=== PATIENT | male | born 1965 | race Caucasian/White ===

== ENCOUNTER 2016-05-24 14:55 | Emergency (ER) | payer MEDICAID | END 2016-05-24 18:02 | disposition home or self-care (01) | LOC: D.ER 14:55 | DX: R10.9 Unspecified abdominal pain (principal); S39.011A Strain of muscle, fascia and tendon of abdomen, initial encounter; X50.0XXA Overexertion from strenuous movement or load, initial encounter; Y93.89 Activity, other specified; Y92.89 Other specified places as the place of occurrence of the external cause; F41.9 Anxiety disorder, unspecified; F31.9 Bipolar disorder, unspecified; F10.10 Alcohol abuse, uncomplicated; F17.200 Nicotine dependence, unspecified, uncomplicated ==

== ENCOUNTER → 2017-06-03 11:47 | Outpatient (CLI) | payer MEDICAID ==
[2017-06-03 12:26] LABS: BASOPHILS 0.4 % (0-2); EOSINOPHILS 0.3 % (0-7); HEMATOCRIT 41.4 % (42.0-54.0); HEMOGLOBIN 14.1 g/dL (13.5-17.5); IMMATURE GRANULOCYTES 0.3 % (0-5); LYMPHOCYTES 14.5 % (15-50); MCH 34.7 pg (26.0-34.0); MCHC 34.1 g/dL (31.0-37.0); MEAN PLATELET VOLUME 8.6 fL (7.4-10.4); NEUTROPHILS 74.5 % (40-80); RBC 4.06 10x6/uL (4.20-6.10); RDW 16.4 % (11.5-14.5); WBC 11.5 10x3/uL (4.8-10.8)
[2017-06-03 12:27] LABS: PLATELET COUNT 171 10x3/uL (130-400)
[2017-06-03 12:53] LABS: ALBUMIN 3.6 g/dL (3.4-5.0); ALKALINE PHOSPHATASE 127 U/L (46-116); ALT (SGPT) 90 U/L (10-68); CALC OSMOLALITY 269 mosm/kg (275-300); CALCIUM 8.3 mg/dL (8.5-10.1); CARBON DIOXIDE 29.2 mmol/L (21.0-32.0); CHLORIDE - SERUM 97 mmol/L (98-107); CREATININE - SERUM 0.9 mg/dL (0.6-1.3); GLUCOSE 112 mg/dL (74-106); PROTEIN - SERUM 7.4 g/dL (6.4-8.2); SODIUM 135 mmol/L (136-145); UREA NITROGEN 11 mg/dL (7-18); eGFR NON AFRICAN AMERICAN > 90 mL/min (90-120)
[2017-06-03 13:47] LABS: THYROID STIMULATING HORMONE 211.23 uIU/mL (0.36-3.74)
== END | disposition home or self-care (01) ==
LOC: D.RAD 11:47
PROVIDERS: Family Medicine
DX: R10.9 Unspecified abdominal pain (principal); R05 Cough; G62.9 Polyneuropathy, unspecified; F42.9 Obsessive-compulsive disorder, unspecified; F31.9 Bipolar disorder, unspecified; G89.29 Other chronic pain; F10.10 Alcohol abuse, uncomplicated

== ENCOUNTER → 2017-06-12 09:31 | Outpatient (CLI) | payer MEDICAID ==
[2017-06-12 10:42] LABS: THYROID STIMULATING HORMONE 167.75 uIU/mL (0.36-3.74)
[2017-06-13 07:36] LABS: T3 - FREE 1.8 pg/mL (2.0-4.4)
[2017-06-13 10:53] LABS: HEPATITIS C ANTIBODY <0.1 (0.0-0.9)
== END | disposition home or self-care (01) ==
LOC: D.LAB 09:31 → D.US 10:30
PROVIDERS: Family Medicine
DX: R10.11 Right upper quadrant pain (principal); R79.89 Other specified abnormal findings of blood chemistry; E03.9 Hypothyroidism, unspecified

== ENCOUNTER → 2017-07-29 12:53 | Outpatient (CLI) | payer MEDICAID ==
[2017-07-29 13:24] LABS: APTT 28.7 SECONDS (22.8-39.4); INR 0.96 (0.85-1.17); PROTIME 12.4 SECONDS (11.6-15.0)
[2017-07-29 14:02] LABS: ALBUMIN 3.7 g/dL (3.4-5.0); BILIRUBIN - DIRECT 0.28 mg/dL (0.00-0.30); BILIRUBIN - INDIRECT 0.52 mg/dL (0.00-1.00); BILIRUBIN - TOTAL 0.8 mg/dL (0.2-1.3); PROTEIN - SERUM 7.5 g/dL (6.4-8.2); T4 THYROXIN - FREE 0.34 ng/dL (0.76-1.46); T4 THYROXINE 2.3 ug/dL (4.7-13.3)
[2017-07-29 14:03] LABS: THYROID STIMULATING HORMONE 155.57 uIU/mL (0.36-3.74)
== END | disposition home or self-care (01) ==
LOC: D.LAB 12:53
PROVIDERS: Family Medicine
DX: E03.9 Hypothyroidism, unspecified (principal); K76.0 Fatty (change of) liver, not elsewhere classified; F10.129 Alcohol abuse with intoxication, unspecified

== ENCOUNTER → 2017-10-28 11:19 | Outpatient (CLI) | payer MEDICAID ==
[2017-10-28 11:43] LABS: BASOPHILS 2.2 % (0-2); HEMATOCRIT 35.5 % (42.0-54.0); HEMOGLOBIN 12.5 g/dL (13.5-17.5); IMMATURE GRANULOCYTES 0.2 % (0-5); LYMPHOCYTES 29.3 % (15-50); MCHC 35.2 g/dL (31.0-37.0); MCV 99.4 fL (80.0-100.0); MEAN PLATELET VOLUME 8.9 fL (7.4-10.4); MONOCYTES 10.8 % (2-11); NEUTROPHILS 56.5 % (40-80); PLATELET COUNT 178 10x3/uL (130-400); RBC 3.57 10x6/uL (4.20-6.10); RDW 15.2 % (11.5-14.5); WBC 5.8 10x3/uL (4.8-10.8)
[2017-10-28 12:21] LABS: ALBUMIN 3.4 g/dL (3.4-5.0); ALKALINE PHOSPHATASE 122 U/L (46-116); ALT (SGPT) 68 U/L (10-68); BILIRUBIN - TOTAL 0.66 mg/dL (0.2-1.3); CALC OSMOLALITY 268 mosm/kg (275-300); CARBON DIOXIDE 26.5 mmol/L (21.0-32.0); CHLORIDE - SERUM 101 mmol/L (98-107); CREATININE - SERUM 0.8 mg/dL (0.6-1.3); GLUCOSE 81 mg/dL (74-106); POTASSIUM - SERUM 3.6 mmol/L (3.5-5.1); PROTEIN - SERUM 7.1 g/dL (6.4-8.2); SODIUM 136 mmol/L (136-145); T4 THYROXIN - FREE 0.23 ng/dL (0.76-1.46); UREA NITROGEN 8 mg/dL (7-18); eGFR NON AFRICAN AMERICAN > 90 mL/min (90-120)
[2017-10-28 13:06] LABS: THYROID STIMULATING HORMONE 241.42 uIU/mL (0.36-3.74)
== END | disposition home or self-care (01) ==
LOC: D.LAB 11:19 → D.US 13:30
PROVIDERS: Family Medicine
DX: E03.9 Hypothyroidism, unspecified (principal); R22.9 Localized swelling, mass and lump, unspecified

== ENCOUNTER 2017-11-27 11:53 | Emergency (ER) | payer OTHER ==
[~2017-11-27] VITALS: Ht 175.3 cm; Wt 66.8 kg
[2017-11-27 12:00] VITALS: Ht 175.3 cm; Wt 66.8 kg
[2017-11-27] MEDS ORDERED: NEURONTIN 300300 MG PO (12:02)
[2017-11-27] MEDS ORDERED: SEROQUEL300 MG PO (12:02)
[2017-11-27] MEDS ORDERED: OMEPRAZOLE20 M1 PO (12:02)
[2017-11-27] MEDS ORDERED: UNITHROID125 MCG PO (12:03)
[2017-11-27 12:30] LABS: BASOPHILS 1.3 % (0-2); EOSINOPHILS 0.6 % (0-7); HEMATOCRIT 33.3 % (42.0-54.0); HEMOGLOBIN 11.8 g/dL (13.5-17.5); IMMATURE GRANULOCYTES 0.2 % (0-5); LYMPHOCYTES 25.4 % (15-50); MCH 36.1 pg (26.0-34.0); MCHC 35.4 g/dL (31.0-37.0); MCV 101.8 fL (80.0-100.0); MEAN PLATELET VOLUME 8.7 fL (7.4-10.4); MONOCYTES 7.4 % (2-11); NEUTROPHILS 65.1 % (40-80); RBC 3.27 10x6/uL (4.20-6.10); RDW 15.8 % (11.5-14.5); WBC 6.2 10x3/uL (4.8-10.8)
[2017-11-27 12:36] LABS: PLATELET COUNT 136 10x3/uL (130-400)
[2017-11-27 12:50] LABS: ALBUMIN 3.3 g/dL (3.4-5.0); ALKALINE PHOSPHATASE 146 U/L (46-116); ALT (SGPT) 83 U/L (10-68); CALC OSMOLALITY 271 mosm/kg (275-300); CALCIUM 8.1 mg/dL (8.5-10.1); CHLORIDE - SERUM 99 mmol/L (98-107); CREATININE - SERUM 0.7 mg/dL (0.6-1.3); POTASSIUM - SERUM 3.5 mmol/L (3.5-5.1); PROTEIN - SERUM 6.7 g/dL (6.4-8.2); SODIUM 138 mmol/L (136-145); UREA NITROGEN 8 mg/dL (7-18); eGFR NON AFRICAN AMERICAN > 90 mL/min (90-120)
[2017-11-27 12:51] LABS: GLUCOSE 61 mg/dL (74-106)
[2017-11-27 12:57] LABS: AMYLASE - SERUM 74 U/L (25-115); LIPASE 184 U/L (73-393)
[2017-11-27 13:04] LABS: UDS - AMPHET NEGATIVE QUAL (NEGATIVE); UDS - BARB NEGATIVE QUAL (NEGATIVE); UDS - BENZO NEGATIVE QUAL (NEGATIVE); UDS - COCAINE NEGATIVE QUAL (NEGATIVE); UDS - OPIATE NEGATIVE QUAL (NEGATIVE); UDS - PCP NEGATIVE QUAL (NEGATIVE); UDS - THC POSITIVE QUAL (NEGATIVE)
[2017-11-27 13:20] LABS: THYROID STIMULATING HORMONE 200.88 uIU/mL (0.36-3.74)
[2017-11-27 13:35] LABS: APPEARANCE CLEAR (CLEAR); COLOR DK YELLOW (YELLOW)
[2017-11-27 13:36] LABS: BACTERIA FEW /hpf (NONE SEEN); BILIRUBIN NEGATIVE (NEGATIVE); EPITHELIAL CELLS 0-5 /hpf (0-5); GLUCOSE NEGATIVE (NEGATIVE); HYALINE CAST OCC /lpf (NONE SEEN); KETONE SMALL mg/dL (NEGATIVE); MUCUS >1+ /lpf (NONE SEEN); NITRITE NEGATIVE (NEGATIVE); PROTEIN TRACE mg/dL (NEGATIVE); WAXY CAST RARE /lpf (NONE SEEN); WHITE CELLS - URINE 0-5 /hpf (0-5)
[2017-11-27] MEDS ORDERED: SYNTHROID50 MCG PO (13:46)
[2017-11-27 14:01] LABS: T4 THYROXINE 1.9 ug/dL (4.7-13.3)
[2017-11-27 14:04] LABS: T4 THYROXIN - FREE 0.17 ng/dL (0.76-1.46)
[2017-11-27 16:21] VITALS: BP 113/60
== END 2017-11-27 15:30 | disposition home or self-care (01) ==
LOC: D.ER 11:53
PROVIDERS: Emergency Medicine
DX: F10.129 Alcohol abuse with intoxication, unspecified (principal); E03.9 Hypothyroidism, unspecified; F41.9 Anxiety disorder, unspecified; K21.9 Gastro-esophageal reflux disease without esophagitis

== ENCOUNTER 2017-12-27 16:22 | Emergency (ER) | payer MEDICAID ==
[~2017-12-27] VITALS: Ht 175.3 cm; Wt 68.2 kg
[~2017-12-27 16:22] MED LIST: NEURONTIN 300300 MG PO; OMEPRAZOLE20 M1 PO; SEROQUEL300 MG PO; SYNTHROID50 MCG PO; UNITHROID125 MCG PO
[2017-12-27 16:36] VITALS: Ht 175.3 cm; Wt 68.2 kg
[2017-12-27] MEDS ORDERED: MUPIROCIN22 GM TOPICAL (17:09)
[2017-12-27 17:33] VITALS: BP 123/68
== END 2017-12-27 17:34 | disposition home or self-care (01) ==
LOC: D.ER 16:22
DX: S71.111A Laceration without foreign body, right thigh, initial encounter (principal); W29.8XXA Contact with other powered hand tools and household machinery, initial encounter; Y93.89 Activity, other specified; Y92.89 Other specified places as the place of occurrence of the external cause; K21.9 Gastro-esophageal reflux disease without esophagitis; E07.9 Disorder of thyroid, unspecified; F17.200 Nicotine dependence, unspecified, uncomplicated

== ENCOUNTER 2018-01-07 13:38 | Emergency (ER) | payer OTHER ==
[~2018-01-07] VITALS: Ht 175.3 cm; Wt 68.2 kg
[~2018-01-07 13:38] MED LIST changes: +MUPIROCIN22 GM TOPICAL
[2018-01-07 14:07] VITALS: Ht 175.3 cm; Wt 68.2 kg
[2018-01-07 14:40] VITALS: BP 106/64
== END 2018-01-07 14:41 | disposition home or self-care (01) ==
LOC: D.ER 13:38
DX: S81.011D Laceration without foreign body, right knee, subsequent encounter (principal); X58.XXXD Exposure to other specified factors, subsequent encounter; Z48.02 Encounter for removal of sutures; K21.9 Gastro-esophageal reflux disease without esophagitis; F17.200 Nicotine dependence, unspecified, uncomplicated